=== PATIENT | male | born 1945 | race Caucasian/White ===

== ENCOUNTER 2024-01-10 15:50 | Outpatient (AMB) | payer MEDICARE, SELFPAY ==
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
[2024-01-10 16:10] VITALS: BP 128/68; PULSE 55; RESP 16; O2SAT 95; BMI 22.5
== END 2024-01-10 16:37 | disposition home or self-care (01) ==
PROVIDERS: PCP Physician Assistant; Visit Provider Physician Assistant
DX: I48.0 Paroxysmal atrial fibrillation (principal); E78.2 Mixed hyperlipidemia; Z79.01 Long term (current) use of anticoagulants; I69.910 Attention and concentration deficit following unspecified cerebrovascular disease
CPT/HCPCS: 99214

== ENCOUNTER 2024-04-03 13:28 | Outpatient (AMB) | payer MEDICARE, SELFPAY ==
[2024-04-03 14:06] VITALS: BP 130/80; PULSE 56; BMI 23.4
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
== END 2024-04-03 14:38 | disposition home or self-care (01) ==
PROVIDERS: PCP Physician Assistant; Visit Provider Internal Medicine
DX: I48.0 Paroxysmal atrial fibrillation (principal); Z51.81 Encounter for therapeutic drug level monitoring; Z79.899 Other long term (current) drug therapy
CPT/HCPCS: 93010; 99204

== ENCOUNTER → 2024-04-03 13:28 | Outpatient (BNVA) | payer MEDICARE, SELFPAY | PROVIDERS: PCP Physician Assistant; Visit Provider Internal Medicine | DX: I48.0 Paroxysmal atrial fibrillation (principal); Z51.81 Encounter for therapeutic drug level monitoring; Z79.899 Other long term (current) drug therapy | CPT/HCPCS: 93005; 99202 ==

== ENCOUNTER 2024-04-08 13:18 | Outpatient (AMB) | payer MEDICARE, SELFPAY ==
[2024-04-08 13:28] VITALS: BP 128/62; PULSE 74; O2SAT 95; BMI 23.8
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
== END 2024-04-08 13:52 | disposition home or self-care (01) ==
PROVIDERS: PCP Physician Assistant; Visit Provider Physician Assistant
DX: Z00.00 Encounter for general adult medical examination without abnormal findings (principal); E78.2 Mixed hyperlipidemia; I48.0 Paroxysmal atrial fibrillation; I63.531 Cerebral infarction due to unspecified occlusion or stenosis of right posterior cerebral artery
CPT/HCPCS: 99397

== ENCOUNTER → 2024-04-17 13:37 | Outpatient (REF) | payer MEDICARE, SELFPAY ==
--- NOTE | 2024-04-17 13:41 | HM_ITS ---
* Total monitoring time 3 days. * Underlying rhythm is sinus with an average rate of 57/Min. About 72% of the time, rate < 60/Min. * Rare supraventricular and ventricular ectopy. * No significant pauses or AV blocks. * Patient marker used once in association with sinus rhythm. * No diary events. MTDD
--- NOTE | 2024-04-17 13:41 | CA_ITS ---
Transthoracic Echocardiogram Patient (Last, First, Middle): Gino Leyva, Gender: Male Date of : 1945 Age: 78 Procedure Date: 04/17/2024 Procedure Type: Transthoracic Echocardiogram Location: OP Height: 187.96 cm Weight: 87.09 kg BSA: 2.14 m2 Heart Rate: bpm BP: 130 / 70 mmHg Visitor Information Assistant: TO Referring MD: Mauro Garcia MD Symptoms: I48.0 - Paroxysmal atrial fibrillation Study Quality: Adequate ECG Rhythm: Sinus Conclusions: - The left ventricular systolic function is normal. The calculated ejection fraction is 63% by biplane method. - The left atrium is moderately dilated. - No obvious valvular pathology seen on this study. Findings Left Ventricle Normal left ventricular cavity size. There is normal left ventricular wall thickness. The left ventricular systolic function is normal. The calculated ejection fraction is 63% by biplane method. There is no evidence of regional wall motion abnormalities. Evidence suggests grade I (mild) diastolic dysfunction. LV peak GLS -16.8%. Right Ventricle Moderately increased right ventricular cavity size. There is normal right ventricular systolic function. Atria The left atrium is moderately dilated. The right atrium is mildly dilated. Aortic Valve There is a normal trileaflet aortic valve. There is no aortic valve stenosis. There is no aortic valve regurgitation. Mitral Valve The mitral valve appears normal. There is trace mitral valve regurgitation. There is no mitral valve stenosis. Pulmonic Valve There is trace pulmonic valve regurgitation. Tricuspid Valve Normal tricuspid valve structure. There is mild tricuspid valve regurgitation. There is no evidence of pulmonary hypertension. Great Vessels The asc aorta is normal in size. Venous The inferior vena cava was not well visualized. Pericardium/Pleural There is no evidence of pericardial effusion. Prior Study Comparison No prior study available for comparison. Recommendations, Care & Conclusions No obvious valvular pathology seen on this study. Measurements 2D Linear Measurements IVSd: 0.92 0.6-0.9/0.6-1.0 cm LVIDd: 4.47 3.9-5.3/4.2-5.9 cm LVIDd Index: 2.09 2.4-3.2/2.2-3.1 cm/m2 LVIDs: 2.84 2.0-3.6 cm LVPWd: 0.72 0.7-1.1 cm LA Diam: 3.10 2.7-3.8/3.0-4.0 cm LAIDs Index: 1.45 1.5-2.3 cm/m2 LV Mass: 143.64 67-162/88-224 g LV Mass Index: 67.12 43-95/49-115 g/m2 LVOT Diam: 2.50 3.0+(-)1.3 cm 2D Systolic Function EF 4C: 65.30 >55% EF 2C: 59.50 >55% EF BiP: 62.70 >55% Mitral Valve MV Pk E: 0.63 MV PK A: 0.56 MV Decel Time: 275.00 E/A: 1.10 E'Lateral: 7.51 E'Medial: 5.87 E/E' Med: 10.70 E/E' Lat: 8.30 PHT: 81.00 MVA PHT: 2.72 Decel [place]: 2.28 Aortic Valve AoV Pk Aren: 1.14 AoV Mn Aren: 0.78 AoV VTI: 0.27 AoV Pk Grad: 5.00 Aov Mn Grad: 3.00 TERRI Cont.VTI: 3.52 LVOT LVOT Pk Aren: 0.78 LVOT Mn Aren: 0.49 LVOT VTI: 0.19 LVOT Pk Grad: 2.00 LVOT Mn Grad: 1.00 LVOT Diam: 2.50 LVOT Area: 4.91 Diastolic Function MV Pk E: 0.63 MV Pk A: 0.56 E/A: 1.10 E'Medial: 5.87 E/E' Med: 10.70 E' Laterial: 7.51 E/E' Lat: 8.30 Right Ventricle TAPSE (mm): 24.30 TVS' Aren: 13.10 Tricuspid Valve TR Pk Aren: 2.23 TR Pk Grad: 20.00 Great Vessels Aorta Sinus of Valsalva: 4.13 2.0-3.[address] [place]: 3.02 1.7-3.4 cm Ao Asc: 3.80 2.1-3.4 cm Updated in Other Vendor System with Status of Final Mauro Garcia MD electronically signed on 04/20/2024 11:23:23 AM with status of Final
== END ==
LOC: HO.CARD 13:37
PROVIDERS: Visit Provider Internal Medicine
DX: I48.0 Paroxysmal atrial fibrillation (principal)
CPT/HCPCS: 93242; 93306; 93356

== ENCOUNTER → 2024-04-17 13:41 | Outpatient (BNV) | payer MEDICARE, SELFPAY | PROVIDERS: Visit Provider Internal Medicine | DX: I49.3 Ventricular premature depolarization (principal) | CPT/HCPCS: 93244; 93306; 93356 ==

== ENCOUNTER 2024-04-30 06:54 | Outpatient (REF) | payer MEDICARE, SELFPAY ==
[2024-04-30 07:59] LABS: Hematocrit 46.6 % (42.0-52.0); Hemoglobin 16.1 g/dl (14.0-18.0); Mean Corpuscular HGB Conc 34.5 g/dl (31.0-36.0); Mean Corpuscular Hemoglobin 31.9 pg (27.0-33.0); Mean Corpuscular Volume 92.5 fL (80.0-98.0); Mean Platelet Volume 10.7 fL (9.4-12.4); Platelet Count 243 X10*3/uL (160-400); Red Blood Count 5.04 X10*6/uL (4.60-5.80); Red Cell Distribution Width 15.9 % (11.0-16.0); White Blood Count 8.7 X10*3/uL (4.8-10.8)
[2024-04-30 08:28] LABS: Alanine Aminotransferase 16 U/L (0-40); Albumin Level 4.4 g/dL (3.5-5.0); Alkaline Phosphatase 91 U/L (39-117); Anion Gap 12 (12-20); Aspartate Amino Transferase 18 U/L (5-37); Bilirubin Total 1.3 mg/dL (0.0-1.0); Blood Urea Nitrogen 10 mg/dL (9-16); Calcium 10.1 mg/dL (8.4-10.2); Carbon Dioxide 26 mmol/L (22-29); Chloride 105 mmol/L (96-108); Cholesterol 138 mg/dL (<200); Estimated Glomerular Filt Rate > 60; Glucose Fasting 96 mg/dL (60-99); HDL Cholesterol 51 mg/dL (>40); LDL Cholesterol Calculated 71 mg/dL (<100); Potassium 4.3 mmol/L (3.3-5.1); Sodium 139 mmol/L (135-145); Total Protein 7.8 g/dL (6.5-8.0); Triglycerides 80 mg/dL (<150)
[2024-04-30 08:48] LABS: Prostate Specific Antigen Scr 3.02 ng/mL (<0.05-4.0)
[2024-04-30 08:50] LABS: TSH reflex Free T4 2.43 uIU/mL (0.32-4.0)
== END 2024-04-30 06:55 | disposition home or self-care (01) ==
LOC: HO.LAB 06:54
PROVIDERS: Internal Medicine; PCP Physician Assistant; Visit Provider Physician Assistant
DX: E78.2 Mixed hyperlipidemia (principal); I48.0 Paroxysmal atrial fibrillation; Z12.5 Encounter for screening for malignant neoplasm of prostate
CPT/HCPCS: 36415; 80053; 80061; 84153; 84443; 85027

== ENCOUNTER 2024-07-17 13:19 | Outpatient (AMB) | payer MEDICARE, SELFPAY ==
[2024-07-17 13:22] VITALS: BP 122/72; PULSE 53; BMI 23.4
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
== END 2024-07-17 14:04 | disposition home or self-care (01) ==
PROVIDERS: PCP Physician Assistant; Visit Provider Internal Medicine
DX: I48.0 Paroxysmal atrial fibrillation (principal); Z51.81 Encounter for therapeutic drug level monitoring; Z79.899 Other long term (current) drug therapy
CPT/HCPCS: 93010; 99214

== ENCOUNTER → 2024-07-17 13:19 | Outpatient (BNVA) | payer MEDICARE, SELFPAY | PROVIDERS: PCP Physician Assistant; Visit Provider Internal Medicine | DX: I48.0 Paroxysmal atrial fibrillation (principal); Z51.81 Encounter for therapeutic drug level monitoring; Z79.899 Other long term (current) drug therapy | CPT/HCPCS: 93005; 99212 ==

== ENCOUNTER 2024-09-25 08:46 | Outpatient (AMB) | payer MEDICARE, SELFPAY ==
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
[2024-09-25 09:04] VITALS: BP 130/68; PULSE 51; O2SAT 97; BMI 23.2
--- OUTSIDE RECORDS SUMMARY | 2024-09-25 23:10 | XMS_ITS | Continuity of Care Document ---
Author Organization [facility] tners Address [address] [place] [address] Care Team Providers Care Book Jacket Cover Machine Operator Name Role Phone Calin Tomas Unavailable Unavailable Allergies, Adverse Reactions, Alerts Substance Reaction Status Criticality morphine Active No Information Procedures Procedure Date Level IV OV New Bladder Ultrasound/ PVR Urnls Dip Stick/tablet Rgnt Auto 2017 Results Test Name Date and Time Measure Units Reference Range Abnormal Flag Status Comments Panel Description: Not Available Final Urine Appearance Sep-10-201 8 00:00:00 Clear N Final Urine Bilirubin Sep-10-201 8 00:00:00 1+ A Final Urine Blood Sep-10-201 8 00:00:00 Moderate A Final Urine Color Sep-10-201 8 00:00:00 Yellow 5778-6 N Final Urine Glucose Sep-10-201 8 00:00:00 Neg mg/dL N Final Urine Ketones Sep-10-201 8 00:00:00 Neg mg/dL N Final Urine Leukocyte Esterase Sep-10-201 8 00:00:00 Neg N Final Urine Nitrites Sep-10-201 8 00:00:00 Neg N Final Urine pH Sep-10-201 8 00:00:00 5.5 A Final Urine Protein Sep-10-201 8 00:00:00 Neg N Final Urine Specific [place] Sep-10-201 8 00:00:00 1.030 A Final Urine Specimen Sep-10-201 8 00:00:00 Voided N Final Urine Urobilinogen Sep-10-201 8 00:00:00 1.0 A Final Advance Directives Directive Yes / No Effective Date File Name No Information Encounters Encounter Description Practice Location Reason(s) For Visit Diagnoses Date Provider Providers Copied on Encounter Level IV OV [facility], [address], [place], [id number], [place] Zofia Benign prostatic hyperplasia with lower urinary tract sympHesitancy of micturition Genoveva Layton. Ricardo SANABRIA, [place], [place], [id number], [place]. tel:[phone] Referring Provider: Ricardo [address], [place], [address] . tel:[phone] Family History Family Member Type Diagnosis Age At Onset Father Problem (finding) Pancreatic Cancer Mother Problem (finding) Pancreatic Cancer Mother Problem (finding) Hypertension Payers Payer name Insurance type Covered alliance party ID Authoriza tion(s) [place] [id number] [facility] [id number] Social History Type Description Quantity Date Captured Comments Sex Male Smoking Status No Information Chief Complaint And Reason For Visit No Information Reason For Referral Reason For Referral No Information History Of Present Illness Encounter Date Complaint History Of Prese nt Illness No Information Functional Status Date Functional Assessmen t No Information Instructions Date Instruction Additional Infor mation No Information Assessments Type Assessment Date No Information Patient Care Teams Name Effective Dates (start - stop) Status Members No Information
== END 2024-09-25 09:57 | disposition home or self-care (01) ==
PROVIDERS: PCP Physician Assistant; Visit Provider Physician Assistant
DX: R41.3 Other amnesia (principal); I48.0 Paroxysmal atrial fibrillation; E78.2 Mixed hyperlipidemia; K44.9 Diaphragmatic hernia without obstruction or gangrene

== ENCOUNTER → 2024-09-25 08:46 | Outpatient (BNVA) | payer MEDICARE, SELFPAY | PROVIDERS: PCP Physician Assistant; Visit Provider Physician Assistant | DX: R41.3 Other amnesia (principal); I48.0 Paroxysmal atrial fibrillation; E78.2 Mixed hyperlipidemia; K44.9 Diaphragmatic hernia without obstruction or gangrene | CPT/HCPCS: 99212 ==

== ENCOUNTER 2024-10-20 11:12 | Outpatient (REF) | payer MEDICARE, SELFPAY ==
--- NOTE | ~2024-10-20 | MR_ITS ---
CLINICAL HISTORY: R41.3 - Other amnesia MR Brain without gadolinium Comparison: None Findings: No restricted diffusion. No intracranial mass or hemorrhage. Moderate cerebral atrophy and compensatory ventriculomegaly. There is encephalomalacia in the right occipital lobe consistent with old stroke, Extending into the mesial aspect of the right temporal lobe. Encephalomalacia extends adjacent to the right hippocampus. Multifocal small areas of FLAIR and T2 hyperintensity in the periventricular and subcortical white matter. No midline shift. No hydrocephalus. Vascular flow voids are intact. The orbits are normal. Mild mucosal thickening of the ethmoid air cells. No focal bone lesion. IMPRESSION: 1. No acute findings. 2. Right occipital and temporal lobe encephalomalacia which extends adjacent to the right hippocampus. 3. Moderate cerebral atrophy and compensatory ventriculomegaly. Scattered T2 and FLAIR hyperintensities consistent with moderate chronic small-vessel ischemic gliosis. This document has been electronically signed by: Rashid Valderrama MD on 10/20/2024 20:57:33
--- NOTE | ~2024-10-20 | XR_ITS ---
CLINICAL HISTORY: Pre-MRI orbit Please check for any metallic artifacts to clear for MRI. MRI Screening XR PRE MRI SCREENING Comparison: None Findings: No acute fractures. Paranasal sinuses and mastoids are clear. No radiopaque foreign body. IMPRESSION: 1. No metallic foreign bodies in the orbits. This document has been electronically signed by: Josep Arriaga MD on 10/20/2024 11:51:32
== END 2024-10-20 11:13 | disposition home or self-care (01) ==
LOC: HO.MRI 11:12
PROVIDERS: PCP Physician Assistant; Visit Provider Physician Assistant
DX: R41.3 Other amnesia (principal)
CPT/HCPCS: 70551

== ENCOUNTER → 2024-10-20 11:20 | Outpatient (BNV) | payer MEDICARE, SELFPAY | PROVIDERS: PCP Physician Assistant; Visit Provider Radiology Diagnostic Radiology | DX: I67.82 Cerebral ischemia (principal); G93.89 Other specified disorders of brain; Z01.818 Encounter for other preprocedural examination | CPT/HCPCS: 70030; 70551 ==

== ENCOUNTER 2025-01-16 13:12 | Outpatient (AMB) | payer MEDICARE, SELFPAY ==
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
[2025-01-16 13:26] VITALS: BP 118/60; PULSE 124; BMI 21.5
--- OUTSIDE RECORDS SUMMARY | 2025-01-16 14:24 | XMS_ITS | Continuity of Care Document ---
Author Organization [facility] tners Address [address] [place] [address] Care Team Providers Care Apartment Community Manager Name Role Phone Calin Tomas Unavailable Unavailable [...] 8 00:00:00 Neg N Final Urine Specific [place] Sep-10-201 8 00:00:00 1.030 A Final Urine Specimen Sep-10-201 8 00:00:00 Voided N Final Urine Urobilinogen Sep-10-201 8 00:00:00 1.0 A Final Advance Directives Directive Yes / No Effective Date File Name No Information Encounters Encounter Description Practice Location Reason(s) For Visit Diagnoses Date Provider Providers Copied on Encounter Level IV OV [facility], [address], [place], [id number], [place] Zofia Benign prostatic hyperplasia with lower urinary tract sympHesitancy of micturition Genoveva Layton. Ricardo SANABRIA, [place], [place], [id number], [place]. tel:[phone] Referring Provider: Ricardo [address], [place], [address] . tel:[phone] Family History Family Member Type Diagnosis Age At Onset Father Problem (finding) Pancreatic Cancer Mother Problem (finding) Pancreatic Cancer Mother Problem (finding) Hypertension Payers Payer name Insurance type Covered democrat ID Authoriza tion(s) [place] MB [id number] [place] [facility] [id number] Social History Type Description Quantity Date Captured [...]
== END 2025-01-16 13:45 | disposition home or self-care (01) ==
PROVIDERS: PCP Physician Assistant; Visit Provider Internal Medicine
DX: I48.0 Paroxysmal atrial fibrillation (principal); Z51.81 Encounter for therapeutic drug level monitoring; Z79.899 Other long term (current) drug therapy
CPT/HCPCS: 93010; 99214; G2211

== ENCOUNTER → 2025-01-16 13:12 | Outpatient (BNVA) | payer MEDICARE, SELFPAY | PROVIDERS: PCP Physician Assistant; Visit Provider Internal Medicine | DX: I48.0 Paroxysmal atrial fibrillation (principal); R94.6 Abnormal results of thyroid function studies; Z51.81 Encounter for therapeutic drug level monitoring; Z79.899 Other long term (current) drug therapy | CPT/HCPCS: 93005; 99212 ==

== ENCOUNTER 2025-01-22 06:25 | Outpatient (REF) | payer MEDICARE, MEDICAID, SELFPAY ==
--- OUTSIDE RECORDS SUMMARY | 2025-01-22 06:28 | XMS_ITS | Continuity of Care Document ---
Author Organization [facility] tners Address [address] [place] [address] Care Team Providers Care Assembler Convertible Top Name Role Phone Calin Tomas Unavailable Unavailable [...] 8 00:00:00 Neg N Final Urine Specific [place] Sep-10-201 8 00:00:00 1.030 A Final Urine Specimen Sep-10-201 8 00:00:00 Voided N Final Urine Urobilinogen Sep-10-201 8 00:00:00 1.0 A Final Advance Directives Directive Yes / No Effective Date File Name No Information Encounters Encounter Description Practice Location Reason(s) For Visit Diagnoses Date Provider Providers Copied on Encounter Level IV OV [facility], [address], [place], [id number], [place] Zofia Benign prostatic hyperplasia with lower urinary tract sympHesitancy of micturition Genoveva Layton. Ricardo SANABRIA, [place], [place], [id number], [place]. tel:[phone] Referring Provider: Ricardo [address], [place], [address] . tel:[phone] Family History Family Member Type Diagnosis Age At Onset Father Problem (finding) Pancreatic Cancer Mother Problem (finding) Pancreatic Cancer Mother Problem (finding) Hypertension Payers Payer name Insurance type Covered democrat ID Authoriza tion(s) [place] MB [id number] [place] [facility] [id number] Social History Type Description Quantity Date Captured [...]
[2025-01-22 08:14] LABS: TSH reflex Free T4 2.51 uIU/mL (0.32-4.0)
== END 2025-01-22 06:26 | disposition home or self-care (01) ==
LOC: HO.LAB 06:25
PROVIDERS: Absent Provider Internal Medicine; PCP Physician Assistant; Visit Provider Physician Assistant
DX: Z13.89 Encounter for screening for other disorder (principal)
CPT/HCPCS: 36415; 84443

== ENCOUNTER 2025-01-22 09:57 | Outpatient (AMB) | payer MEDICARE, MEDICAID, SELFPAY ==
--- OUTSIDE RECORDS SUMMARY | 2025-01-22 11:04 | XMS_ITS | Continuity of Care Document ---
Author Organization [facility] tners Address [address] [place] [address] Care Team Providers Care Lip Cutter Name Role Phone Calin Tomas Unavailable Unavailable [...] 8 00:00:00 Neg N Final Urine Specific [place] Sep-10-201 8 00:00:00 1.030 A Final Urine Specimen Sep-10-201 8 00:00:00 Voided N Final Urine Urobilinogen Sep-10-201 8 00:00:00 1.0 A Final Advance Directives Directive Yes / No Effective Date File Name No Information Encounters Encounter Description Practice Location Reason(s) For Visit Diagnoses Date Provider Providers Copied on Encounter Level IV OV [facility], [address], [place], [id number], [place] Zofia Benign prostatic hyperplasia with lower urinary tract sympHesitancy of micturition Genoveva Layton. Ricardo SANABRIA, [place], [place], [id number], [place]. tel:[phone] Referring Provider: Ricardo [address], [place], [address] . tel:[phone] Family History Family Member Type Diagnosis Age At Onset Father Problem (finding) Pancreatic Cancer Mother Problem (finding) Pancreatic Cancer Mother Problem (finding) Hypertension Payers Payer name Insurance type Covered alliance party ID Authoriza tion(s) [place] [id number] [place] [facility] [id number] Social History Type Description Quantity Date Captured [...]
--- NOTE | 2025-01-22 17:12 | AM.OFFVISNUR ---
Intake Visit Reasons: EKG Allergies No Known Allergies Allergy (Verified 09/25/24 09:30) Nursing Note Pt here for an ekg on eliquis 400 mg bid, metorpolol 25 mg bid. Pt ekg was sinus alex with 1st degree AV block. hr 40.. Showed ot Dr Garcia and he stopped amioldarone 400 mg bid Pt to star Amiodarone 200 mg daily. DC metoporolol . DR Garcia ordered a 3 day holter monitor to get today. Which was ordered and arranged. Coding
== END 2025-01-22 11:09 | disposition home or self-care (01) ==
PROVIDERS: PCP Physician Assistant; Visit Provider Internal Medicine
DX: I47.10 Supraventricular tachycardia, unspecified (principal); I49.3 Ventricular premature depolarization
CPT/HCPCS: 93244

== ENCOUNTER → 2025-01-22 10:51 | Outpatient (REF) | payer MEDICARE, MEDICAID, SELFPAY ==
--- OUTSIDE RECORDS SUMMARY | 2025-01-22 12:39 | XMS_ITS | Continuity of Care Document ---
Author Organization [facility] tners Address [address] [place] [address] Care Team Providers Care Welfare Specialist Name Role Phone Calin Tomas Unavailable Unavailable [...] 8 00:00:00 Neg N Final Urine Specific [place] Sep-10-201 8 00:00:00 1.030 A Final Urine Specimen Sep-10-201 8 00:00:00 Voided N Final Urine Urobilinogen Sep-10-201 8 00:00:00 1.0 A Final Advance Directives Directive Yes / No Effective Date File Name No Information Encounters Encounter Description Practice Location Reason(s) For Visit Diagnoses Date Provider Providers Copied on Encounter Level IV OV [facility], [address], [place] [id number], [place] Zofia Benign prostatic hyperplasia with lower urinary tract sympHesitancy of micturition Genoveva Layton. Ricardo SANABRIA, [place], [place], [id number], [place]. tel:[phone] Referring Provider: [address], [place], [address] . tel:[phone] Family History Family Member Type Diagnosis Age At Onset Father Problem (finding) Pancreatic Cancer Mother Problem (finding) Pancreatic Cancer Mother Problem (finding) Hypertension Payers Payer name Insurance type Covered democrat ID Authoriza tion(s) [place] [id number] [facility] [id number] Social History Type Description Quantity Date Captured [...]
== END ==
LOC: HO.CARD 10:51
PROVIDERS: Visit Provider Internal Medicine
DX: I48.0 Paroxysmal atrial fibrillation (principal); R00.1 Bradycardia, unspecified
CPT/HCPCS: 36415; 84443; 93242